=== PATIENT | female | born 1995 | race Caucasian/White ===

== ENCOUNTER 2017-02-06 17:11 | Emergency (ER) | payer OTHER ==
[~2017-02-06] VITALS: Ht 162.6 cm; Wt 70.0 kg
[2017-02-06 17:19] VITALS: BP 126/79
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
--- NOTE | 2017-02-06 22:45 | NUR ---
Patient being evaluated by physician at bedside.
[2017-02-07 00:35] VITALS: BP 119/81
== END 2017-02-07 00:34 | disposition home or self-care (01) ==
LOC: MED 17:11
DX: S63.502A Unspecified sprain of left wrist, initial encounter (principal); W20.8XXA Other cause of strike by thrown, projected or falling object, initial encounter; Y93.89 Activity, other specified; Y92.89 Other specified places as the place of occurrence of the external cause; Y99.8 Other external cause status
CPT/HCPCS: 73090; 73110; 99284